=== PATIENT | female | born 1975 | race Caucasian/White ===

== ENCOUNTER → 2016-10-29 | Outpatient (REF) | LOC: WSOH 15:00 | DX: Z02.89 Encounter for other administrative examinations (principal) ==

== ENCOUNTER → 2017-01-18 | Outpatient (REF) | LOC: WSOH 07:00 | DX: Z02.89 Encounter for other administrative examinations (principal) ==

== ENCOUNTER → 2018-01-18 | Outpatient (CLI) | payer BC | LOC: COL.RAD 11:06 | DX: J98.11 Atelectasis (principal); J98.6 Disorders of diaphragm; R10.9 Unspecified abdominal pain | CPT/HCPCS: Q9967 ==

== ENCOUNTER → 2018-01-18 | Outpatient (CLI) | payer BC | LOC: ZCOL.LAB 11:48 | DX: R07.89 Other chest pain (principal) ==

== ENCOUNTER → 2019-09-26 | Outpatient (CLI) | payer OTHER | LOC: COL.RAD 14:58 | DX: I82.812 Embolism and thrombosis of superficial veins of left lower extremity (principal) ==